=== PATIENT | female | born 1950 | race Caucasian/White ===

== ENCOUNTER → 2018-03-25 09:47 | Outpatient (CLI) | payer OTHER, SELFPAY ==
--- NOTE | 2018-03-25 09:49 | BI_ITS ---
MAMMOGRAPHY - BILATERAL SCREENING REASON FOR EXAM: Female, 67 years old. Routine annual screening examination. PERTINENT HISTORY: Non-contributory. TECHNIQUE: Digital bilateral breast vidhi (3D mammographic acquisition) in the CC and MLO projections. 2-D mediolateral oblique (MLO) and craniocaudad (CC) views of both breasts were obtained. CAD: Full Field Digital Mammography with Computer Added Detection was performed. COMPARISON: Comparison is made with prior study dated February 28, 2016 and March 09, 2017. FINDINGS: Breast Composition: The breasts are almost entirely fatty. There are no dominant masses or suspicious calcifications. No other significant abnormalities are identified. There has been no significant change since the prior study. BI/SCREENING MAMM (CAD), BILAT IMPRESSION: Stable bilateral screening mammogram. Yearly follow-up mammogram recommended. (A) ASSESSMENT CATEGORY: BIRADS Category 1: Negative. A letter regarding these results will be sent to the patient by the facility within 30 days. Approximately 10% of breast cancers are not detected by mammography. A normal mammogram should not delay biopsy of a clinically suspicious abnormality. [id number] Electronically Signed: Pedrito Will MD at 11:29 EDT Tel [phone], Service support ,
== END ==
PROVIDERS: Family Provider Internal Medicine; PCP Internal Medicine; Visit Provider Obstetrics & Gynecology
DX: Z12.31 Encounter for screening mammogram for malignant neoplasm of breast (principal)
CPT/HCPCS: 77063; 77067

== ENCOUNTER → 2018-08-19 07:42 | Outpatient (CLI) | payer MEDICARE, BC, SELFPAY ==
[2018-08-19 09:22] LABS: Absolute Lymphocyte Count 1.19 X10^3/ul (0.83-4.51); Absolute Neutrophil Count 3.8 X10^3/uL (2.0-7.7); Basophil# 0.02 X10^3/uL; Basophil% 0.3 % (0-1); Eosinophil# 0.17 X10^3/uL; Hemoglobin 11.5 g/dl (12.0-15.0); Lymphocyte # 1.19 X10^3/ul (4.0); Lymphocyte % 20.7 % (19-41); Mean Corp Hgb Conc 31.1 g/gl (32-36); Mean Corpuscular Hgb 28.8 pg (27.0-32.0); Mean Corpuscular Volume 92.5 fL (81-99); Mean Platelet Vol. 9.1 fl (6.2-12.0); Monocyte# 0.61 X10^3/uL; Monocyte% 10.6 % (0-10); Neutrophil # 3.76 X10^3/uL (2.7-7.7); Neutrophil % 65.2 % (47-70); POSITIVE COUNT NO; POSITIVE DIFFERENTIAL NO; POSITIVE MORPHOLOGY NO; Platelet Count 475 K/mm3 (150-450); RBC Distribution Width CV 14.2 % (11.6-14.6); RBC Distribution Width SD 47.4 fl (35.1-43.9); White Blood Count 5.8 K/mm3 (4.4-11.0)
== END ==
PROVIDERS: Family Provider Internal Medicine; PCP Internal Medicine; Referring Provider Internal Medicine Rheumatology; Visit Provider Internal Medicine Rheumatology
DX: D64.9 Anemia, unspecified (principal)
CPT/HCPCS: 36415; 85025

== ENCOUNTER → 2018-12-22 06:06 | Outpatient (CLI) | payer MEDICARE, BC, SELFPAY ==
--- NOTE | 2018-12-22 06:10 | CT_ITS ---
STUDY: CT ABDOMEN AND PELVIS WITH CONTRAST REASON FOR EXAM: Female, 68 years old. One-month history of abdominal bloating and nausea. RADIATION DOSAGE (If Supplied By Facility): CTDIvol = ( 21.08 ) mGy, DLP = ( 1441.45 ) mGycm TECHNIQUE: Transaxial images were obtained from the dome of the diaphragm to the symphysis pubis with oral contrast. 100mL IV/Oral Isovue 300 was administered. Sagittal and coronal images were reconstructed. Individualized dose optimization techniques were used for this CT. COMPARISON: None. FINDINGS: Tiny left pleural effusion with bibasilar atelectasis. The visualized portions of the heart are within normal limits. Diffuse ascites. Multiple nodular soft tissue densities are seen within the mesentery and omentum suggestive of omental metastasis. There is a 8 cm x 11.8 cm x 10.3 cm complex solid and cystic mass in the left adnexal region suggestive of ovarian neoplasm. There is decreased attenuation of the liver consistent with steatosis. Normal gallbladder and extrahepatic biliary system. Normal spleen. Normal pancreas. Normal bilateral adrenal glands. Normal right kidney. Normal left kidney. Normal visualized stomach. Normal small intestine. Normal colon. The appendix is visualized and appears normal. There is scattered atherosclerotic calcification of the abdominal aorta, without a demonstrated aneurysm. Normal inferior vena cava. There is borderline retroperitoneal lymphadenopathy with enlarged nodes no greater than 10mm in the short axis diameter. Normal urinary bladder. Normal abdominal wall. There are diffuse degenerative changes of the visualized lumbar spine. Minimal anterior listhesis of L4 on L5. Status post right total hip replacement. CT/Abdomen/Pelvis WITH Contrast IMPRESSION: Diffuse ascites. Large left-sided pelvic mass suggestive of ovarian neoplastic process with diffuse omental and mesenteric metastasis within the abdomen and pelvis. Electronically Signed: Pedrito Will, at 9:40 EDT , Service support ,
== END ==
PROVIDERS: Family Provider Internal Medicine; PCP Internal Medicine; Referring Provider Internal Medicine; Visit Provider Internal Medicine
DX: R14.0 Abdominal distension (gaseous) (principal)
CPT/HCPCS: 74177; Q9967

== ENCOUNTER → 2019-01-02 14:02 | Outpatient (CLI) | payer MEDICARE, BC, SELFPAY ==
--- NOTE | 2019-01-02 14:08 | CT_ITS ---
STUDY: CT CHEST WITH CONTRAST REASON FOR EXAM: Female, 68 years old. Ovarian cancer staging. RADIATION DOSAGE (If Supplied By Facility): CTDIvol = ( 13.37 ) mGy, DLP = ( 483.65 ) mGycm TECHNIQUE: Transaxial imaging was performed following intravenous administration of 75 IV Isovue 300. Individualized dose optimization techniques were used for this CT. COMPARISON: CT scan abdomen and pelvis 12/22/2018. FINDINGS: There are no demonstrated confluent pulmonary infiltrates or pulmonary masses. There is minimal left pleural fluid. Normal heart and pericardium. There are multiple small lymph nodes within the mediastinum, which are normal in size and morphology. Normal hilar regions. Normal enhanced pulmonary arteries. Normal aorta arch and descending thoracic aorta. There are multi-level degenerative changes of the thoracic spine. There is ascites within the visualized upper abdomen. There are multiple metastatic implants seen in peritoneal surfaces, as well as within the visualized omentum and small bowel mesentery, similar to the recent previous abdominal CT scan exam. There is moderate hydronephrosis of the visualized right kidney, which was not present on the recent previous exam. CT/Chest WITH Contrast IMPRESSION: Minimal left pleural fluid, questionable significance. Small mediastinal lymph nodes, normal in size and morphology and probably representing benign reactive nodes. No other evidence for mass or lymphadenopathy in the chest. Redemonstration of malignant ascites in the visualized upper abdomen, with peritoneal, omental, and small bowel mesenteric implants. New finding of moderate hydronephrosis of the visualized right kidney, of indeterminate etiology. Electronically Signed: Az Mckeon MD at 8:04 EDT , Service support ,
[2019-01-03 07:23] LABS: CREATININE FINGERSTICK 1.86 mg/dL (0.55-1.02); EGFR FINGERSTICK 29 mL/min (>60)
== END ==
PROVIDERS: Family Provider Internal Medicine; PCP Internal Medicine
DX: N83.9 Noninflammatory disorder of ovary, fallopian tube and broad ligament, unspecified (principal)
CPT/HCPCS: 71260; Q9967

== ENCOUNTER → 2019-04-08 | Outpatient (CLI) | payer MEDICARE, BC, SELFPAY ==
--- NOTE | 2019-04-08 07:23 | BI_ITS ---
MAMMOGRAPHY - BILATERAL SCREENING REASON FOR EXAM: Female, 68 years old. Routine annual screening examination. PERTINENT HISTORY: Non-contributory. History of ovarian carcinoma. TECHNIQUE: Digital bilateral breast mariza (3D mammographic acquisition) in the CC and MLO projections. 2-D mediolateral oblique (MLO) and craniocaudad (CC) views of both breasts were obtained. CAD: Full Field Digital Mammography with Computer Added Detection was performed. COMPARISON: Comparison is made with prior study dated March 25, 2018 and March 09, 2017. FINDINGS: Breast Composition: The breasts are almost entirely fatty. There are no dominant masses or suspicious calcifications. No other significant abnormalities are identified. There has been no significant change since the prior study. BI/SCREEN MAMM (CAD) W/MARIZA BILAT IMPRESSION: Stable bilateral screening mammogram. Yearly follow-up mammogram recommended. (A) ASSESSMENT CATEGORY: BIRADS Category 1: Negative. A letter regarding these results will be sent to the patient by the facility within 30 days. Approximately 10% of breast cancers are not detected by mammography. A normal mammogram should not delay biopsy of a clinically suspicious abnormality. [id number] Electronically Signed: Pedrito Will, at 8:16 EDT , Service support ,
== END | disposition home or self-care (01) ==
LOC: OPBI 07:20
PROVIDERS: Family Provider Internal Medicine; PCP Internal Medicine; Referring Provider Internal Medicine; Visit Provider Internal Medicine
DX: Z12.31 Encounter for screening mammogram for malignant neoplasm of breast (principal)
CPT/HCPCS: 77063; 77067

== ENCOUNTER → 2019-04-11 | Outpatient (CLI) | payer MEDICARE, BC, SELFPAY | END | disposition home or self-care (01) | LOC: OPBD 10:42 | PROVIDERS: Family Provider Internal Medicine; PCP Internal Medicine; Referring Provider Internal Medicine; Visit Provider Internal Medicine | DX: Z12.31 Encounter for screening mammogram for malignant neoplasm of breast (principal) ==

== ENCOUNTER → 2019-04-13 | Outpatient (CLI) | payer MEDICARE, BC, SELFPAY ==
--- NOTE | 2019-04-13 10:57 | BD_ITS ---
STUDY: DUAL ENERGY X-RAY ABSORPTIOMETRY / DXA REASON FOR EXAM: Female, 68 years old. Early menopause. Loss of height. Recent diagnosis of ovarian cancer. TECHNIQUE: Bone Mineral Density (BMD) measurements of lumbar spine and left hip were obtained. The patient is status post right total hip replacement. COMPARISON: Comparison is made with prior study dated March 28, 2009. FINDINGS: Lumbar Spine (L1-L4): g/cm2 (1.334) / T-score (1.4) / Z-score (3.0) Findings are suggestive of normal bone density with a low fracture risk. Left Femur Total: g/cm2 (0.897) / T-score (-0.9) / Z-score (0.4) Left Femoral Neck: g/cm2 (0.855) / T-score (-1.3) / Z-score (0.2) The T-Scores on the most recent prior examination were: Lumbar Spine (L1-L4): There has been worsening of bone density since the previous examination. Left Femur Total: which represents a worsening of 16.1%. BD/Dexa Bone Density Study IMPRESSION: The patient is considered osteopenic as outlined below according to World [employer] Organization (WHO) criteria with a low fracture risk. There has been worsening of bone density since the previous examination. Reference Information: The T-score is the number of standard deviations above or below the standard which is normal for young adults at their peak bone mineral density. The World Health Organization (WHO) interprets the T-scores as follows: Above -1 Normal bone density Between -1 and -2.5 Osteopenia Equal to / or below -2.5 Osteoporosis As a practical clinical guideline, osteopenia may be graded as follows: Mild -1 through -1.5 Moderate -1.6 through -2.0 Severe -2.1 through -2.4 The Z-score is the number of standard deviations above or below age-matched controls. A Z-score of less than -1.5 would be considered abnormal. References: 1. NIH Osteoporosis and Related Bone Diseases http://www.osteo.org 2. International Society for Clinical Densitometry http://www.iscd.org 3. National Osteoporosis Foundation http://www.nof.org Electronically Signed: Pedrito Will, at 15:30 EDT , Service support ,
== END | disposition home or self-care (01) ==
LOC: OPBD 10:41
PROVIDERS: Family Provider Internal Medicine; PCP Internal Medicine; Referring Provider Internal Medicine; Visit Provider Internal Medicine
DX: Z78.0 Asymptomatic menopausal state (principal)
CPT/HCPCS: 77080

== ENCOUNTER → 2020-03-21 12:42 | Outpatient (CLI) | payer MEDICARE, BC, SELFPAY ==
--- NOTE | 2020-03-21 12:47 | CT_ITS ---
STUDY: CT ABDOMEN AND PELVIS WITH CONTRAST REASON FOR EXAM: Female, 69 years old. OVARIAN CA RADIATION DOSAGE (If Supplied By Facility): CTDIvol = ( 18.54 ) mGy, DLP = ( 948.38 ) mGycm TECHNIQUE: Transaxial images were obtained from the dome of the diaphragm to the symphysis pubis without oral contrast. IV 100mL Isovue-300 was administered. Sagittal and coronal images were reconstructed. Individualized dose optimization techniques were used for this CT. COMPARISON: None. FINDINGS: Significant changes in the liver since the previous study. The previous study showed some changes suggestive of cirrhosis but there are now multiple suspicious enhancing lesions noted in both lobes of the liver likely metastasis along with a subcapsular hematoma along the periphery of the right lobe on axial images 21 through 37. Normal gallbladder and extrahepatic biliary system. Normal spleen. The proximal half the pancreas is also now markedly abnormal with a heterogeneous lesion involving the head and mid body of the pancreas. The distal body and tail of pancreas is unremarkable. There is suspicious soft tissue abnormality in the milly hepatis distended with bulky likely metastatic adenopathy there is also extensive bulky soft tissue adenopathy around the celiac axis and in the omentum. All of these findings have worsened since the previous study. There is also diffuse four-quadrant ascites and bilateral soft tissue masses within the pelvis consistent with diffuse metastasis as well. Normal bilateral adrenal glands. Normal right kidney. Normal left kidney. Normal visualized stomach. Normal small intestine. There are a few scattered colonic diverticula without CT evidence of acute diverticulitis. There is non-visualization of the appendix. There is diffuse atherosclerotic calcification of the abdominal aorta, without a demonstrated aneurysm. Normal inferior vena cava. The bladder is incompletely distended. Post surgical ventral hernias are noted some contained fluid. There are diffuse degenerative changes of the visualized lumbar spine, and pelvis. CT/Abdomen/Pelvis WITH Contrast IMPRESSION: Significant interval worsening since the previous study of 12/22/2018. Previously described milly hepatic, celiac axis and omental adenopathy has significantly progressed and worsened since the previous study. These bulky lymph nodes measure up to 5 cm in short axis dimension. There is persistent associated likely malignant ascites. There are also multiple new suspicious enhancing lesions in the liver suggestive of metastasis and a subcapsular hematoma anterior to the right lobe of the liver. The largest hepatic lesion measures 3.5 cm. The head and mid body the pancreas is heterogeneous and diffusely enlarged also suggestive of metastasis. Within the mid body of the pancreas is 4.56 cm Degenerative bony changes Chronic diverticulosis Electronically Signed: Guevara Reddy MD at 13:48 EDT , Service support ,
--- NOTE | 2020-03-21 12:47 | CT_ITS ---
STUDY: CT CHEST WITH CONTRAST REASON FOR EXAM: Female, 69 years old. OVARIAN CA RADIATION DOSAGE (If Supplied By Facility): CTDIvol = ( 10.25 ) mGy, DLP = ( 355.22 ) mGycm TECHNIQUE: Transaxial imaging was performed following intravenous administration of IV 100mL Isovue-300. Multiplanar coronal and sagittal images were reformatted. Individualized dose optimization techniques were used for this CT. COMPARISON: 01/02/2019 FINDINGS: Soft tissue windows show development of a large loculated likely malignant right pleural effusion since the previous study. There is associated atelectasis. No suspicious axillary adenopathy. There are mediastinal lymph nodes in the AP window measuring up to 1.2 cm in short axis dimension. No suspicious perihilar adenopathy, there are calcified coronary vessels. The lung windows show atelectasis in the right lung likely related to the large right loculated effusion. Left lung is free of a superimposed acute pulmonary process though there is nonspecific pleural thickening in the inferior lateral left hemithorax which is also likely metastasis. Normal enhanced pulmonary arteries. Normal aorta arch and descending thoracic aorta. There are multi-level degenerative changes of the thoracic spine. CT/Chest WITH Contrast IMPRESSION: Development of a large loculated right pleural effusion since the previous study which should be considered malignant Development of low-density thickening along the left lateral pleural surface also suspicious for metastasis Borderline enlarged mediastinal lymph nodes Degenerative bony changes Calcified coronary vessels Electronically Signed: Guevara Reddy MD at 13:52 EDT , Service support ,
== END ==
PROVIDERS: PCP Internal Medicine
DX: C56.9 Malignant neoplasm of unspecified ovary (principal)
CPT/HCPCS: 71260; 74177; Q9967